=== PATIENT | male | born 1955 | race Caucasian/White ===

== ENCOUNTER 2017-07-26 14:30 | Emergency (ER) | payer OTHER ==
[2017-07-26 15:12] VITALS: RESP 18; TEMP 97.6
[2017-07-26] MEDS ORDERED: Lidocaine 2% Inj (20ml) ONE (15:58)
[2017-07-26 17:30] VITALS: BP 146/83; PULSE 68; O2SAT 98
--- NOTE | 2017-07-27 09:38 | C.PDOC ---
History Of Present Illness 62 year old male presents to the ED for evaluation of a laceration which he sustained to his right 3rd toe earlier today. Patient states a forklift brushed up against his toe, leading to his injury. He denies any other injuries, extremity numbness/weakness or active bleeding at this time. Chief Complaint (Nursing): Lower Extremity Problem/Injury History Per: Patient History/Exam Limitations: no limitations Onset/Duration Of Symptoms: Hrs Current Symptoms Are (Timing): Still Present Additional History Per: Patient - Ankle/Foot Description Of Injury: Other (injured by forklift ) Past Medical History Reviewed: Historical Data, Nursing Documentation, Vital Signs Vital Signs: Last Vital Signs Temp 97.6 F 07/26/17 15:10 Pulse 68 07/26/17 17:00 Resp 18 07/26/17 17:00 BP 146/83 07/26/17 17:00 Pulse Ox 98 07/27/17 09:41 - Medical History PMH: HTN Surgical History: No Surg Hx Family History: States: Unknown Family Hx - Social History Hx Alcohol Use: No Hx Substance Use: No - Immunization History Hx Tetanus Toxoid Vaccination: No Hx Influenza Vaccination: No Hx Pneumococcal Vaccination: No Review Of Systems Skin: Positive for: Other (right 3rd toe laceration ) Physical Exam - Physical Exam Appears: Non-toxic, No Acute Distress Skin: Normal Color, Warm, Dry, Other (2cm curved laceration to right 3rd toe. no active bleeding ) Extremity: Normal ROM, Capillary Refill (less than 2 seconds) Neurological/Psych: Oriented x3, Normal Speech, Normal Cognition Gait: Steady ED Course And Treatment O2 Sat by Pulse Oximetry: 98 (on RA) Pulse Ox Interpretation: Normal Laceration - Laceration Repair right 3rd toe Wound Length (In cm): 2 Anesthesia: Lidocaine 1% Wound Examination: Irrigated With Saline, No FB With Wound Exploration, No Tendon Injury With Wound Exploration Wound Closure: Suture (four ) Suture Technique And Material Used: Interrupted, Nylon (3-0) Wound Complexity: Simple Medical Decision Making Medical Decision Making: Patient received Tetanus IM and Keflex PO. Laceration Repair: 2cm curved laceration to the right 3rd toe. Digital block achieved with 1% Lidocaine without epinephrine. Wound irrigated with NS and explored. No FB seen. No tendon injury. Four 3-0 interrupted Nylon sutures placed. Pt tolerated well with minimal bleeding. Patient is resting comfortably and is stable for discharge. Advised to f/u within 1 week for suture removal. Disposition - Disposition Referrals: Sharon Vallejo, [Non-Staff] - Disposition: HOME/ ROUTINE Disposition Time: 16:50 Condition: IMPROVED Additional Instructions: Thank you for letting us take care of you today. The emergency medical care you received today was directed at your acute symptoms. If you were prescribed any medication, please fill it and take as directed. It may take several days for your symptoms to resolve. Return to the Emergency Department if your symptoms worsen, do not improve, or if you have any other problems. Please contact your doctor or call one of the physicians/clinics you have been referred to that are listed on the Patient Visit Information form that is included in your discharge packet. Bring any paperwork you were given at discharge with you along with any medications you are taking to your follow up visit. Our treatment cannot replace ongoing medical care by a primary care provider (PCP) outside of the emergency department. Thank you for allowing the [facility] team to be part of your care today. Follow up with your doctor in 7 days for suture removal. Prescriptions: Cephalexin [cephalexin] 500 mg PO Q8 #21 cap Instructions: Care For Your Stitches (ED) Forms: [employer] (Indonesian) - Clinical Impression Clinical Impression: Toe laceration - Scribe Statement The provider has reviewed the documentation as recorded by the Scribe (Marie Villagomez) Provider Attestation: All medical record entries made by the Scribe were at my direction and personally dictated by me. I have reviewed the chart and agree that the record accurately reflects my personal performance of the history, physical exam, medical decision making, and the department course for this patient. I have also personally directed, reviewed, and agree with the discharge instructions and disposition.
== END 2017-07-26 17:31 | disposition home or self-care (01) ==
LOC: C.ER 14:30
DX: S91.114A Laceration without foreign body of right lesser toe(s) without damage to nail, initial encounter (principal); W31.89XA Contact with other specified machinery, initial encounter; Y92.69 Other specified industrial and construction area as the place of occurrence of the external cause; Y99.0 Civilian activity done for income or pay; Z23 Encounter for immunization